=== PATIENT | male | born 1935 | race Caucasian/White ===

== ENCOUNTER 2017-03-01 04:03 | Emergency (ER) | payer OTHER ==
[~2017-03-01] VITALS: Ht 182.9 cm; Wt 75.0 kg
[2017-03-01 04:09] VITALS: Ht 182.9 cm; Wt 75.0 kg
[2017-03-01] MEDS ORDERED: IPRATROPIUM (NEB) 0.5 MG/2.5 ML AMP INH STA (04:11)
[2017-03-01] MEDS ORDERED: ALBUTEROL 0.5% (NEB) 2.5 MG/0.5 ML AMP INH STA (04:11)
[2017-03-01] MEDS ORDERED: METHYLPREDNISOLONE 125 MG INJ IV STA (04:11)
[2017-03-01 04:37] LABS: ADD SCAN DIFF NO
[2017-03-01 04:55] LABS: INR 0.96; PROTIME 12.8 Sec (12.2-14.2)
[2017-03-01 04:56] LABS: PARTIAL THROMBOPLASTIN TIME 34.7 Sec (25.0-35.0)
[2017-03-01 04:57] LABS: ALBUMIN 3.5 g/dl (3.3-4.9); ALBUMIN/GLOBULIN RATIO 1.75; BILIRUBIN,INDIRECT 0.1 mg/dl (0-1.1); BILIRUBIN,TOTAL 0.1 mg/dl (0.2-1.3); CALCIUM 7.8 mg/dl (8.4-10.2); CREATININE 0.92 mg/dl (0.61-1.24); POTASSIUM 3.5 mmol/L (3.5-5.1); TOTAL PROTEIN 5.5 g/dl (6.1-8.1)
[2017-03-01 05:09] LABS: TROPONIN-I 0.03 ng/ml (0.00-0.12)
[2017-03-01] MEDS ORDERED: morphine 4 MG/ML VIAL IV STA ×2 (05:13→06:22)
[2017-03-01] MEDS ORDERED: ONDANSETRON 4 MG INJ IV STA ×3 (05:13→09:19)
[2017-03-01] MEDS ORDERED: morphine 4 MG/ML VIAL ONE (05:18)
[2017-03-01 05:26] LABS: ABNORMAL IP MESSAGE 1; BASOPHILS % 0.1 % (0.0-2.0); EOSINOPHILS # 0.1 10^3/ul (0.0-0.5); EOSINOPHILS % 0.5 % (0.0-7.0); HEMATOCRIT 18.9 % (42.0-52.0); LYMPHOCYTES # 1.2 10^3/ul (0.8-2.9); LYMPHOCYTES % 9.6 % (15.0-51.0); MEAN CORPUSCULAR HEMOGLOBIN 29.4 pg (29.0-33.0); MEAN CORPUSCULAR HGB CONC 33.9 g/dl (32.0-37.0); MEAN CORPUSCULAR VOLUME 86.7 fl (82.0-101.0); MEAN PLATELET VOLUME 10.7 fl (7.4-10.4); MONOCYTE # 1.2 10^3/ul (0.3-0.9); MONOCYTES % 10.1 % (0.0-11.0); NEUTROPHIL # 9.7 10^3/ul (1.6-7.5); NEUTROPHILS % 78.8 % (39.0-77.0); PLATELET COUNT 164 10^3/UL (140-415); RED BLOOD COUNT 2.18 10^6/ul (4.70-6.10); RED CELL DISTRIBUTION WIDTH 13.7 % (11.5-14.5); WHITE BLOOD COUNT 12.3 10^3/ul (4.8-10.8)
[2017-03-01 05:29] LABS: HEMOGLOBIN 6.4 g/dl (14.0-18.0)
[2017-03-01] MEDS ORDERED: FUROSEMIDE 40 MG INJ IV ONE ×2 (05:30→09:30)
[2017-03-01 05:31] LABS: AADO2 Arterial 56.4 mmHg (7.0-24.0); Allen Test ACCEPTAB; Arterial Base Excess -1.5 mmol/L (-3.0-3); Arterial COHb 1.2 % (0.0-3.0); Arterial Fraction of Oxyhgb 95.5 % (93.0-99.0); Arterial HCO3 24.1 mmol/L (22.0-26.0); Arterial MetHb 0.4 % (0.0-1.5); Arterial Total Hemglobin 7.5 g/dl (12.0-18.0); Blood Gas IEPAP 15/5; MODE MASK - BIPAP
--- NOTE | 2017-03-01 05:39 | ERA ---
ER Documentation Chief Complaint Date/Time DATE: 03/01/17 TIME: 05:37 Chief Complaint SOB since earlier today, COPD HPI This is a 41-year-old male with shortness of breath since earlier today. Patient has history of COPD. Denies any fevers or chills. Denies any nausea vomiting. Denies any other current issues. Denies any chest pain ROS All systems reviewed and are negative except as per history of present illness. Allergies Allergies: Coded Allergies: No Known Allergy (Unverified , 03/01/17) PMhx/Soc History of Surgery: Yes (demetrio, hernia repair) Anesthesia Reaction: No Hx Neurological Disorder: No Hx Respiratory Disorders: Yes (COPD) Hx Cardiac Disorders: No Hx Psychiatric Problems: No Hx Miscellaneous Medical Probl: Yes (HTN, "issue where the blood vessel splits ", claudication) Hx Alcohol Use: No Hx Substance Use: No Hx Tobacco Use: Yes Smoking Status: Current every day smoker Physical Exam Vitals Vital Signs Date Time Temp Pulse Resp B/P Pulse Ox O2 Delivery O2 Flow Rate FiO2 03/01/17 04:10 81 99 30 03/01/17 04:09 97.6 80 25 171/48 96 Physical Exam Const: [] Head: Atraumatic Eyes: Normal Conjunctiva ENT: Normal External Ears, Nose and Mouth. Neck: Full range of motion..~ No meningismus. Resp: Clear to auscultation bilaterally Cardio: Regular rate and rhythm, no murmurs Abd: Soft, non tender, non distended. Normal bowel sounds Skin: No petechiae or rashes Back: No midline or flank tenderness Ext: No cyanosis, or edema Neur: Awake and alert Psych: Normal Mood and Affect Result Diagram: 03/01/17 0504 03/01/17 0420 Results 24 hrs Laboratory Tests Test 03/01/17 04:11 03/01/17 04:20 03/01/17 05:04 Blood Gas Specimen Source Blood arterial Arterial Blood Date Drawn 03/01/2017 5:17:53 AM Arterial Blood pH (Temp corrected) 7.345 Arterial Blood pCO2 (Temp correct) 45.2mmhg Arterial Blood pO2 (Temp corrected) 104.4mmHG Arterial Blood HCO3 24.1mmol/L Arterial Blood Base Excess -1.5mmol/L Arterial Blood Oxygen Saturation 97.1mmHG Viraj Test ACCEPTAB Arterial Blood Gas Puncture Site Right Radial Arterial Blood Carboxyhemoglobin 1.2% Arterial Blood Methemoglobin 0.4% Blood Gas A-a O2 Differential 56.4mmHg Oxyhemoglobin Percent 95.5% Total Hemoglobin 7.5g/dl Blood Gas Temperature 37.0C Blood Gas Respiration Rate 16.0 Blood Gas Actual Respiration Rate 20 Blood Gas Modality MASK - BIPAP FiO2 30.0% Blood Gas Inspiratory Time 1.0 Blood Gas IPAP/EPAP Ratio 08/02 Blood Gas Notified Whom AA Blood Gas Notified Time 03/01/2017 5:30:44 AM Prothrombin Time 12.8Sec Prothrombin Time Ratio 1.0 INR International Normalized Ratio 0.96 Activated Partial Thromboplast Time 34.7Sec Sodium Level 123mmol/L Potassium Level 3.5mmol/L Chloride Level 93mmol/L Carbon Dioxide Level 25mmol/L Anion Gap 9 Blood Urea Nitrogen 26mg/dl Creatinine 0.92mg/dl Glucose Level 134mg/dl Lactic Acid Level 1.0mmol/L Calcium Level 7.8mg/dl Total Bilirubin 0.1mg/dl Direct Bilirubin 0.00mg/dl Indirect Bilirubin 0.1mg/dl Aspartate Amino Transf (AST/SGOT) 21IU/L Alanine Aminotransferase (ALT/SGPT) 33IU/L Alkaline Phosphatase 40IU/L Troponin I 0.030ng/ml B-Type Natriuretic Peptide 1390PG/ML Total Protein 5.5g/dl Albumin 3.5g/dl Globulin 2.00g/dl Albumin/Globulin Ratio 1.75 White Blood Count 12.310^3/ul Red Blood Count 2.1810^6/ul Hemoglobin 6.4g/dl Hematocrit 18.9% Mean Corpuscular Volume 86.7fl Mean Corpuscular Hemoglobin 29.4pg Mean Corpuscular Hemoglobin Concent 33.9g/dl Red Cell Distribution Width 13.7% Platelet Count 25956^3/UL Mean Platelet Volume 10.7fl Neutrophils % 78.8% Lymphocytes % 9.6% Monocytes % 10.1% Eosinophils % 0.5% Basophils % 0.1% Nucleated Red Blood Cells % 0.0/100WBC Neutrophils # 9.710^3/ul Lymphocytes # 1.210^3/ul Monocytes # 1.210^3/ul Eosinophils # 0.110^3/ul Basophils # 0.010^3/ul Nucleated Red Blood Cells # 0.010^3/ul Current Medications Medications (Trade) Dose Ordered Sig/[place] Route PRN Reason Start Time Stop Time Status Last Admin Dose Admin Albuterol (Proventil 0.5% (Neb)) 10 mg ONCE STAT INH 03/01/17 04:11 03/01/17 04:13 DC 03/01/17 04:24 Ipratropium Mcdade (Atrovent 0.02% (Neb)) 1 mg ONCE STAT INH 03/01/17 04:11 03/01/17 04:13 DC 03/01/17 04:23 Methylprednisolone Sodium Succinate (Solu-Medrol) 125 mg ONCE STAT IV 03/01/17 04:11 03/01/17 04:13 DC 03/01/17 04:35 Furosemide (Lasix) 40 mg ONCE ONCE IV 03/01/17 05:30 03/01/17 05:31 DC 03/01/17 05:22 Morphine Sulfate (morphine) 4 mg ONCE STAT IV 03/01/17 05:13 03/01/17 05:18 DC 03/01/17 05:21 Ondansetron HCl (Zofran Inj) 4 mg ONCE STAT IV 03/01/17 05:13 03/01/17 05:18 DC 03/01/17 05:21 Morphine Sulfate (morphine) 4 mg STK-MED ONCE .ROUTE 03/01/17 05:18 03/01/17 05:19 DC Procedures/MDM EKG: Rate/Rhythm: [Normal Sinus Rhythm] QRS, ST, T-waves: [No changes consistent w/ acute ischemia] Impression: [No evidence of ischemia or arrhythmia] Chest X-ray 1V Interpreted by me: Soft Tissue: No acute abnormalities Bones: No acute abnormalities Mediastinum/Cardiac Silhouette/Lungs: [No acute abnormalities] Patient's heart failure symptoms is concerning for acute decompensation and will require inpatient workup and monitoring. Further w/u for ischemia, arrhythmia, PE or dissection will be deferred to the inpatient team. Patient also anemic. Typed and crossed for 2 units. Accepting Care Team: Current data and ongoing care discussed. Time: 5:30 AM Primary Provider: Yohan Consulting: [[employer]] Outstanding Data: none Critical Care: Time: 45 minutes Treatments/Evaluations: Close monitoring and treatment of unstable vital signs, cardiorespiratory, and neurologic status, while maintaining tight balance of fluid, respiratory, and cardiac interventions. Departure Diagnosis: Primary Impression: CHF (congestive heart failure) Qualified Code: I50.9 - Congestive heart failure, unspecified congestive heart failure chronicity, unspecified congestive heart failure type Additional Impressions: Anemia Qualified Code: D64.9 - Anemia, unspecified type Respiratory failure Qualified Code: J96.01 - Acute respiratory failure with hypoxia Condition: Critical KERA ADLER Mar 01, 2017 05:39
--- NOTE | 2017-03-01 05:50 | RADRPT ---
PROCEDURE: XR Chest. CLINICAL INDICATION: Shortness of breath TECHNIQUE: Portable single view of the chest COMPARISON: None. FINDINGS: The heart size is top normal. The aorta is calcified. There are slightly increased interstitial ma rkings the lungs but no definite acute infiltrate, pleural effusion, or overt congestive heart failu re is seen. Degenerative change of the spine is seen. IMPRESSION: Aortic calcification. Mild interstitial prominence. RPTAT: HLBE Aline Cole Physician Date Time Electronically viewed and signed by Aline Cole, Physician on 03/01/2017 05:50 LE/
[2017-03-01] MEDS ORDERED: PENT400T2 PO (07:13)
[2017-03-01] MEDS ORDERED: TAMS0.4C2 PO (07:13)
[2017-03-01] MEDS ORDERED: LISI40TA9 PO (07:13)
[2017-03-01] MEDS ORDERED: ASPI81TA3 PO (07:20)
[2017-03-01] MEDS ORDERED: HYDROmorphONE 1 MG/ML SYG IV STA (09:19)
[2017-03-01 10:47] VITALS: BP 126/66; PULSE 69; RESP 16; TEMP 98.4
== END 2017-03-01 11:16 | disposition short-term general hospital (02) ==
LOC: E/R 04:03
DX: I50.9 Heart failure, unspecified (principal); I10 Essential (primary) hypertension; J44.9 Chronic obstructive pulmonary disease, unspecified; F17.210 Nicotine dependence, cigarettes, uncomplicated; D64.9 Anemia, unspecified; J96.01 Acute respiratory failure with hypoxia
CPT/HCPCS: 36430; 36600; 71010; 80053; 82803; 83605; 83880; 84484; 85025; 85610; 85730; 86850; 86900; 86901; 86920; 87040; 93005; 94644; 94660; 94664; J1170; J1940; J2270; J2405; J2930; P9016; 36415; 96374; 96375; 96376